=== PATIENT | male | born 1970 | race Caucasian/White ===

== ENCOUNTER 2021-11-04 10:12 | Emergency (ER) | payer OTHER ==
[~2021-11-04] VITALS: Ht 182 cm; Wt 73.4 kg
[2021-11-04] MEDS ORDERED: ONDANSETRON 4 MG/2 ML (SDV) Z0FRAN ONE (10:47)
[2021-11-04] MEDS ORDERED: NS IV 1000 ML 1,000 ML ONE (10:48)
[2021-11-04] MEDS ORDERED: KETOROLAC 30 MG/ML VIAL ONE (10:48)
[2021-11-04] MEDS ORDERED: morphine INJ 10 MG/ML 1ML (SYR OR VIAL) IVP STA (10:51)
--- NOTE | 2021-11-04 10:57 | ED Abdominal Pain ---
General Chief Complaint: Abdominal/GI Problems Stated Complaint: BACK / ABD PAIN Nursing Triage Note: PT PRESENTS TO ED WITH COMPLAINTS OF R SIDE/FLANK PAIN THAT RADIATES TO FRONT STARTING AT 0730. Source of Information: Patient Exam Limitations: No Limitations History of Present Illness Date Seen by Provider: Nov 04, 2021 Time Seen by Provider: 10:55 Initial Comments To ER with sudden onset right flank pain this morning associated with nausea and vomiting. No history of this. Timing/Duration: 4-6 Hours Severity/Quality: Severe Location: Flank Radiation: No Radiation Activities at Onset: None Associated Symptoms: Nausea/Vomiting Allergies and Home Medications Allergies Coded Allergies: No Known Drug Allergies (Unverified , 11/04/21) Patient Home Medication List Home Medication List Reviewed: Yes Review of Systems Review of Systems Constitutional: see HPI EENTM: No Symptoms Reported Respiratory: No Symptoms Reported Cardiovascular: No Symptoms Reported Gastrointestinal: See HPI, Nausea Genitourinary: See HPI, Flank Pain Musculoskeletal: see HPI, back pain Skin: no symptoms reported Psychiatric/Neurological: No Symptoms Reported Endocrine: No Symptoms Reported Hematologic/Lymphatic: No Symptoms Reported Past Tfjtoyv-Yzozxp-[id number] Hx Patient Social History Tobacco Use?: No Smoking Status: Former Smoker Substance use?: No Alcohol Use?: No Pt feels they are or have been: No Immunizations Up To Date First/Initial COVID19 Vaccinat: YES Second COVID19 Vaccination Dusty: YES 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 oz. kg; 22.00 BMI Method: General Appearance: WD/WN, moderate distress (Difficulty sitting still secondary to pain, writhing.) Neck: non-tender, full range of motion Respiratory: no respiratory distress, no accessory muscle use Cardiovascular: regular rate, rhythm, no murmur Gastrointestinal: normal bowel sounds, non tender, soft Extremities: normal range of motion, non-tender Back: normal inspection, other (site of pain is the right sacroiliac joint) Neurologic/Psychiatric: alert, normal mood/affect, oriented x 3 Skin: normal color, warm/dry Progress/Results/Core Measures Results/Orders Lab Results Laboratory Tests Test 11/04/21 10:30 11/04/21 12:04 Range/Units White Blood Count 11.9 H 4.3-11.0 10^3/uL Red Blood Count 5.08 4.30-5.52 10^6/uL Hemoglobin 14.9 13.3-17.7 g/dL Hematocrit 43 40-54 % Mean Corpuscular Volume 85 80-99 fL Mean Corpuscular Hemoglobin 29 25-34 pg Mean Corpuscular Hemoglobin Concent 34 32-36 g/dL Red Cell Distribution Width 13.0 10.0-14.5 % Platelet Count 272 130-400 10^3/uL Mean Platelet Volume 9.8 9.0-12.2 fL Immature Granulocyte % (Auto) 0 % Neutrophils (%) (Auto) 70 42-75 % Lymphocytes (%) (Auto) 21 12-44 % Monocytes (%) (Auto) 6 0-12 % Eosinophils (%) (Auto) 2 0-10 % Basophils (%) (Auto) 1 0-10 % Neutrophils # (Auto) 8.3 H 1.8-7.8 10^3/uL Lymphocytes # (Auto) 2.5 1.0-4.0 10^3/uL Monocytes # (Auto) 0.7 0.0-1.0 10^3/uL Eosinophils # (Auto) 0.2 0.0-0.3 10^3/uL Basophils # (Auto) 0.1 0.0-0.1 10^3/uL Immature Granulocyte # (Auto) 0.0 0.0-0.1 10^3/uL Prothrombin Time 12.8 12.2-14.7 SEC INR Comment 0.9 0.8-1.4 Sodium Level 137 135-145 MMOL/L Potassium Level 4.0 3.6-5.0 MMOL/L Chloride Level 104 98-107 MMOL/L Carbon Dioxide Level 20 L 21-32 MMOL/L Anion Gap 13 5-14 MMOL/L Blood Urea Nitrogen 14 7-18 MG/DL Creatinine 0.91 0.60-1.30 MG/DL Estimat Glomerular Filtration Rate 101 BUN/Creatinine Ratio 15 Glucose Level 107 H 70-105 MG/DL Calcium Level 9.0 8.5-10.1 MG/DL Corrected Calcium 9.0 8.5-10.1 MG/DL Total Bilirubin 0.6 0.1-1.0 MG/DL Aspartate Amino Transf (AST/SGOT) 21 5-34 U/L Alanine Aminotransferase (ALT/SGPT) 20 0-55 U/L Alkaline Phosphatase 60 40-136 U/L Total Protein 7.1 6.4-8.2 GM/DL Albumin 4.0 3.2-4.5 GM/DL Urine Color YELLOW Urine Clarity CLEAR Urine pH 6.0 5-9 Urine Specific [place] >=1.030 1.016-1.022 Urine Protein NEGATIVE NEGATIVE Urine Glucose (UA) NEGATIVE NEGATIVE Urine Ketones TRACE H NEGATIVE Urine Nitrite NEGATIVE NEGATIVE Urine Bilirubin NEGATIVE NEGATIVE Urine Urobilinogen 0.2 < = 1.0 MG/DL Urine Leukocyte Esterase NEGATIVE NEGATIVE Urine RBC (Auto) NEGATIVE NEGATIVE Urine RBC NONE /HPF Urine WBC NONE /HPF Urine Squamous Epithelial Cells RARE /HPF Urine Crystals NONE /LPF Urine Bacteria NEGATIVE /HPF Urine Casts NONE /LPF Urine Mucus SMALL H /LPF Urine Culture Indicated NO Urine Opiates Screen POSITIVE H NEGATIVE Urine Oxycodone Screen NEGATIVE NEGATIVE Urine Methadone Screen NEGATIVE NEGATIVE Urine Propoxyphene Screen NEGATIVE NEGATIVE Urine Barbiturates Screen NEGATIVE NEGATIVE Ur Tricyclic Antidepressants Screen NEGATIVE NEGATIVE Urine Phencyclidine Screen NEGATIVE NEGATIVE Urine Amphetamines Screen NEGATIVE NEGATIVE Urine Methamphetamines Screen NEGATIVE NEGATIVE Urine Benzodiazepines Screen NEGATIVE NEGATIVE Urine Cocaine Screen NEGATIVE NEGATIVE Urine Cannabinoids Screen POSITIVE H NEGATIVE My Orders Orders - REBECCA REYNOSO APRN Cbc With Automated Diff (11/04/21 10:51) Comprehensive Metabolic Panel (11/04/21 10:51) Ua Culture If Indicated (11/04/21 10:51) Protime With Inr (11/04/21 10:51) Abdomen/Kub 1view (11/04/21 10:51) Ct Abd/Pelvis Wo(Kidney Stone) (11/04/21 10:51) Ed Iv/Invasive Line Start (11/04/21 10:51) Ketorolac Injection (Toradol Injection) (11/04/21 11:00) Morphine Injection (Morphine Injection (11/04/21 10:51) Ns Iv 1000 Ml (Sodium Chloride 0.9%) (11/04/21 11:00) Ondansetron Injection (Zofran Injectio (11/04/21 11:00) Orphenadrine Inj (Ed Only) (Norflex Inje (11/04/21 12:00) Ketamine Syringe (Ketamine Syringe) (11/04/21 12:00) Drug Screen Stat (Urine) (11/04/21 12:08) Medications Given in ED Current Medications Medications Dose Ordered Sig/Lorena Route Start Time Stop Time Status Last Admin Dose Admin Ketamine HCl 12.5 mg ONCE ONCE IV 11/04/21 12:00 11/04/21 12:01 DC 11/04/21 11:59 12.5 MG Ketorolac Tromethamine 15 mg ONCE ONCE IVP 11/04/21 11:00 11/04/21 11:01 DC 11/04/21 10:50 15 MG Ondansetron HCl 8 mg ONCE ONCE IVP 11/04/21 11:00 11/04/21 11:01 DC 11/04/21 10:55 8 MG Orphenadrine Citrate 60 mg ONCE ONCE IV 11/04/21 12:00 11/04/21 12:01 DC 11/04/21 11:59 60 MG Vital Signs/I&O 11/04/21 10:33 Temp 35.6 Pulse 69 Resp 18 B/P (MAP) 124/78 (93) Pulse Ox 98 Blood Pressure Mean: 93 Departure Communication (Admissions) 1244-Still has a lot of pain over the right sacroiliac joint that wraps down to the right butt cheek. Does not move down the leg. Certain movements make this pain worse. His CT fails to demonstrate any nephrolithiasis or other causes. There are a few palpable nodules over the right sacroiliac joint that are mobile and nontender. He states pressure in this area makes the pain better. He has not had any improvement despite 12.5 mg of ketamine, 15 mg of Toradol, or 5 mg of morphine. NAME: FREDERICK HAILE [facility] REC#: [id number] PT STATUS: REG ER : 1970 PHYSICIAN: REBECCA REYNOSO APRN ADMIT DATE: 11/04/21/ER Draft Date of Exam:11/04/21 CT ABD/PELVIS WO(KIDNEY STONE) PROCEDURE: CT urinary tract, rule out kidney stone. TECHNIQUE: Multiple contiguous axial images were obtained through the abdomen and pelvis without the use of intravenous contrast. Auto Exposure Controls were utilized during the CT exam to meet ALARA standards for radiation dose reduction. INDICATION: Right-sided back pain. COMPARISON: No prior studies are available for comparison. FINDINGS: Imaging through the lung bases does show 7 mm subpleural nodular density in the right lower lobe, indeterminate. The liver contains numerous circumscribed low-attenuation lesions suggestive of cysts. The largest is in the left lobe measuring 3.7 cm. The gallbladder is unremarkable. No biliary ductal dilatation is seen. Pancreas and spleen are unremarkable. No adrenal mass is detected. No renal calculi are identified. No ureteral calculi or hydronephrosis is detected. Bladder is unremarkable. Aorta is nonaneurysmal. The small and large bowel loops are normal in caliber. There is no obstruction. The appendix is visualized in the right lower quadrant and appears unremarkable. No inflammatory changes are seen. There is no free fluid or fluid collection. There are some fat-containing inguinal hernias bilaterally. Bony structures appear nonacute. IMPRESSION: 1. Hepatic cysts. 2. No evidence of urinary tract calculi or obstruction. No acute features identified. Dictated on workstation # [id number] Dict: 11/04/21 1124 Trans: 11/04/21 1149 [id number] [id number] Interpreted by: DILCIA HONG MD Electronically signed by: Impression Primary Impression: Pain of right sacroiliac joint Disposition: 01 HOME, SELF-CARE Condition: Stable Departure-Patient Inst. Decision time for Depature: 12:45 Referrals: NO,LOCAL PHYSICIAN (PCP/Family) Primary Care Physician Patient Instructions: No Instuctions Given Add. Discharge Instructions: 1. If you live in [place], then you can certainly establish with primary care provider in [place] though we have several here in [place]. You do need to follow-up with primary care sometime later this week to make sure this pain is improving. Return to ER for any worsening. Medication as directed. All discharge instructions reviewed with patient and/or family. Voiced understanding. Scripts Prednisone (Prednisone) 20 Mg Tab 40 MG PO DAILY, #6 TAB 0 Refills Prov: REBECCA REYNSOO APRN 11/04/21 Oxycodone HCl/Acetaminophen (Percocet 5-325 mg Tablet) 1 Each Tablet 1 TAB PO Q4H for PAIN-MODERATE MDD 6 TABS for 7 Days, #20 TAB Prov: REBECCA REYNOSO APRN 11/04/21 Work/School Note: Work Release Form Date Seen in the Emergency Department: Nov 04, 2021 Return to Work: Nov 08, 2021 REBECCA REYNOSO APRN Nov 04, 2021 10:57
[2021-11-04] MEDS ORDERED: ONDANSETRON 4 MG/2 ML (SDV) Z0FRAN IVP ONE ×2 (11:00)
[2021-11-04] MEDS ORDERED: NS IV 1000 ML 1,000 ML IV SCH (11:00)
[2021-11-04] MEDS ORDERED: KETOROLAC 30 MG/ML VIAL IVP ONE (11:00)
[2021-11-04 11:06] LABS: BASOPHILS # (AUTO) 0.1 10^3/uL (0.0-0.1); BASOPHILS % (AUTO) 1 % (0-10); EOSINOPHILS # (AUTO) 0.2 10^3/uL (0.0-0.3); EOSINOPHILS % (AUTO) 2 % (0-10); HEMATOCRIT 43 % (40-54); HEMOGLOBIN 14.9 g/dL (13.3-17.7); LYMPHOCYTES # (AUTO) 2.5 10^3/uL (1.0-4.0); LYMPHOCYTES % (AUTO) 21 % (12-44); MEAN CORPUSCULAR HEMOGLOBIN 29 pg (25-34); MEAN CORPUSCULAR HGB CONC 34 g/dL (32-36); MEAN CORPUSCULAR VOLUME 85 fL (80-99); MEAN PLATELET VOLUME 9.8 fL (9.0-12.2); MONOCYTES # (AUTO) 0.7 10^3/uL (0.0-1.0); MONOCYTES % (AUTO) 6 % (0-12); NEUTROPHILS # (AUTO) 8.3 10^3/uL (1.8-7.8); NEUTROPHILS % (AUTO) 70 % (42-75); PLATELET COUNT 272 10^3/uL (130-400); WHITE BLOOD COUNT 11.9 10^3/uL (4.3-11.0)
[2021-11-04 11:15] LABS: INR 0.9 (0.8-1.4); PROTHROMBIN TIME PATIENT 12.8 SEC (12.2-14.7)
[2021-11-04 11:19] LABS: TOTAL PROTEIN 7.1 GM/DL (6.4-8.2)
[2021-11-04 11:21] LABS: BILIRUBIN,TOTAL 0.6 MG/DL (0.1-1.0)
[2021-11-04 11:23] LABS: CREATININE SERUM 0.91 MG/DL (0.60-1.30)
--- NOTE | 2021-11-04 11:36 | Diagnostic Imaging Report ---
Indication: Right-sided flank pain. Time of Exam: 11:12 AM Single view of the abdomen was obtained. Bowel gas pattern is nonobstructed. No radiopaque urinary tract calculi are identified. Bony structures are unremarkable. IMPRESSION: No acute abnormality is detected. Dictated by: Dictated on workstation # [id number]
--- NOTE | 2021-11-04 11:49 | Diagnostic Imaging Report ---
PROCEDURE: CT urinary tract, rule out kidney stone. TECHNIQUE: Multiple contiguous axial images were obtained through the abdomen and pelvis without the use of intravenous contrast. Auto Exposure Controls were utilized during the CT exam to meet ALARA standards for radiation dose reduction. INDICATION: Right-sided back pain. COMPARISON: No prior studies are available for comparison. FINDINGS: Imaging through the lung bases does show 7 mm subpleural nodular density in the right lower lobe, indeterminate. The liver contains numerous circumscribed low-attenuation lesions suggestive of cysts. The largest is in the left lobe measuring 3.7 cm. The gallbladder is unremarkable. No biliary ductal dilatation is seen. Pancreas and spleen are unremarkable. No adrenal mass is detected. No renal calculi are identified. No ureteral calculi or hydronephrosis is detected. Bladder is unremarkable. Aorta is nonaneurysmal. The small and large bowel loops are normal in caliber. There is no obstruction. The appendix is visualized in the right lower quadrant and appears unremarkable. No inflammatory changes are seen. There is no free fluid or fluid collection. There are some fat-containing inguinal hernias bilaterally. Bony structures appear nonacute. IMPRESSION: 1. Hepatic cysts. 2. No evidence of urinary tract calculi or obstruction. No acute features identified. Dictated by: Dictated on workstation # [id number]
[2021-11-04] MEDS ORDERED: KETAMINE 50 MG/5 ML SYRINGE IV ONE (12:00)
[2021-11-04] MEDS ORDERED: ORPHENADRINE 60 MG/2 ML (NORFLEX) AMP (ED ONLY) IV ONE (12:00)
[2021-11-04 12:10] LABS: BILIRUBIN,URINE NEGATIVE (NEGATIVE); CLARITY,URINE CLEAR; COLOR,URINE YELLOW; GLUCOSE, URINE (UA) NEGATIVE (NEGATIVE); KETONES,URINE TRACE (NEGATIVE); LEUKOCYTE ESTERASE ,URINE NEGATIVE (NEGATIVE); NITRITE,URINE NEGATIVE (NEGATIVE); PROTEIN,URINE NEGATIVE (NEGATIVE)
[2021-11-04 12:22] LABS: BACTERIA,URINE NEGATIVE /HPF; SQUAMOUS EPITHELIAL CELL,UR RARE /HPF
[2021-11-04 12:31] LABS: AMPHETAMINE SCREEN, URINE NEGATIVE (NEGATIVE); BENZODIAZEPINES SCREEN URINE NEGATIVE (NEGATIVE); COCAINE SCREEN URINE NEGATIVE (NEGATIVE); METHAMPHETAMINE SCREEN URINE S NEGATIVE (NEGATIVE)
[2021-11-04 12:32] LABS: BARBITURATE SCREEN URINE NEGATIVE (NEGATIVE); CANNABINOID SCREEN, URINE POSITIVE (NEGATIVE); METHADONE STAT NEGATIVE (NEGATIVE); OPIATE SCREEN URINE POSITIVE (NEGATIVE); OXYCODONE STAT NEGATIVE (NEGATIVE); PROPOXYPHENE STAT NEGATIVE (NEGATIVE); TRICYCLIC ANTIDEPRESSANTS SCRE NEGATIVE (NEGATIVE)
[2021-11-04] MEDS ORDERED: HYDROmorphone 2 MG/ML VIAL (DILAUDID) IV ONE (12:45)
[2021-11-04] MEDS ORDERED: PRD20T PO (12:47)
[2021-11-04] MEDS ORDERED: OXYC1TAB87 PO (12:47)
[2021-11-04 13:09] VITALS: BP 103/62
== END 2021-11-04 13:08 | disposition home or self-care (01) ==
LOC: ER 10:14
DX: M53.3 Sacrococcygeal disorders, not elsewhere classified (principal); Z87.891 Personal history of nicotine dependence
CPT/HCPCS: 36415; 74018; 74176; 80053; 80306; 81000; 85025; 85610